=== PATIENT | male | born 1995 | race Two or more races ===

== ENCOUNTER 2017-05-12 01:33 | Emergency (ER) | payer OTHER ==
[~2017-05-12] VITALS: Ht 172.7 cm; Wt 65.8 kg
--- NOTE | 2017-05-12 02:01 | NUR ---
Dr. Rodriguez at bedside for MSE
--- NOTE | 2017-05-12 02:18 | NUR ---
Patient discharged to home in stable conditon. Written and verbal after care instructions given. Patient verbalizes understanding of instructions. Pt ambulated from ER w/ steady gait
[2017-05-12 02:20] VITALS: BP 123/68
== END 2017-05-12 02:22 | disposition home or self-care (01) ==
LOC: ER 01:40
DX: J11.1 Influenza due to unidentified influenza virus with other respiratory manifestations (principal)
CPT/HCPCS: 99283; A4663